=== PATIENT | female | born 1980 | race Caucasian/White ===

== ENCOUNTER 2019-02-25 06:56 | Day surgery (SDC) | payer BC ==
[2019-02-25] MEDS: ONDANSETRON (ODT) 4 MG TAB ODT (07:20)
[2019-02-25] MEDS: HYDROCODONE/APAP (5/325) TAB PO (07:20)
[2019-02-25 07:37] LABS: ADD MAN DIFF? NO
[2019-02-25 07:41] LABS: WHITE BLOOD COUNT 9.1 10^3/ul (4.8-10.8)
[2019-02-25 07:41] LABS: BASOPHILS % 0.2 % (0.0-2.0); EOSINOPHILS # 0.1 10^3/ul (0.0-0.5); EOSINOPHILS % 1.3 % (0.0-7.0); HEMATOCRIT 30.8 % (37.0-47.0); HEMOGLOBIN 10.1 g/dl (12.0-16.0); LYMPHOCYTES # 1.1 10^3/ul (0.8-2.9); LYMPHOCYTES % 11.8 % (15.0-51.0); MEAN CORPUSCULAR HEMOGLOBIN 29.9 pg (29.0-33.0); MEAN CORPUSCULAR HGB CONC 32.8 g/dl (32.0-37.0); MEAN CORPUSCULAR VOLUME 91.1 fl (82.0-101.0); MEAN PLATELET VOLUME 9.5 fl (7.4-10.4); MONOCYTE # 0.4 10^3/ul (0.3-0.9); MONOCYTES % 4.1 % (0.0-11.0); NEUTROPHIL # 7.4 10^3/ul (1.6-7.5); NEUTROPHILS % 82.3 % (39.0-77.0); PLATELET COUNT 179 10^3/UL (140-415); RED BLOOD COUNT 3.38 10^6/ul (4.20-5.40); RED CELL DISTRIBUTION WIDTH 12.4 % (11.5-14.5)
[2019-02-25 08:14] LABS: ADD UMIC YES; UR ASCORBIC ACID NEGATIVE (NEGATIVE); UR BILIRUBIN (Dip) NEGATIVE (NEGATIVE); UR BLOOD (Dip) 3+ mg/dL (NEGATIVE); UR CLARITY TURBID (CLEAR); UR COLOR AMBER (YELLOW); UR GLUCOSE (Dip) NEGATIVE (NEGATIVE); UR KETONES (Dip) NEGATIVE (NEGATIVE); UR LEUKOCYTE ESTERASE (Dip) NEGATIVE Leu/ul (NEGATIVE); UR MUCUS MANY /HPF (NONE SEEN); UR NITRITE (Dip) NEGATIVE (NEGATIVE); UR RBC > 182 /HPF (0-5); UR SPECIFIC GRAVITY (Dip) 1.026 (1.003-1.030); UR TOTAL PROTEIN (Dip) 3+ mg/dl (NEGATIVE); UR UROBILINOGEN (Dip) NEGATIVE (NEGATIVE); UR WBC 40 /HPF (0-5)
[2019-02-25] MEDS ORDERED: DESFLURANE 15 MIN (10:20)
[2019-02-25] MEDS ORDERED: LIDOCAINE 2% (SDV) 5 ML INJ (10:22)
[2019-02-25] MEDS ORDERED: FENTAnyl 50 MCG/ML VIAL (10:22)
[2019-02-25] MEDS ORDERED: PROPOFOL 20 ML (10:22)
[2019-02-25] MEDS ORDERED: ONDANSETRON 4 MG INJ IV (10:30)
[2019-02-25] MEDS ORDERED: MEPERIDINE 25 MG INJ IV (10:30)
[2019-02-25] MEDS ORDERED: OXYCODONE/ACETAMINOPHEN (5/325) TAB PO ×2 (10:30)
[2019-02-25] MEDS ORDERED: FENTAnyl 50 MCG/ML VIAL IV ×3 (10:30)
[2019-02-25] MEDS ORDERED: METOCLOPRAMIDE 10 MG INJ (10:55)
[2019-02-25] MEDS ORDERED: FAMOTIDINE 20 MG INJ (10:55)
[2019-02-25] MEDS ORDERED: DEXAMETHASONE 4 MG/ML 5 ML INJ (10:55)
[2019-02-25] MEDS ORDERED: CEFAZOLIN 1 GM INJ (10:55)
[2019-02-25] MEDS ORDERED: ONDANSETRON 4 MG INJ (10:55)
== END 2019-02-25 12:36 | disposition home or self-care (01) ==
LOC: FTE 06:56 → SUR 10:45 → SDS 10:45 → SUR 12:36
DX: O03.4 Incomplete spontaneous abortion without complication (principal)
CPT/HCPCS: 59812; 76801; 76817; 81001; 84702; 85025; 86900; 86901; 88305